=== PATIENT | male | born 2000 | race African-American/Black ===

== ENCOUNTER 2023-05-05 14:57 | Emergency (ER) | payer OTHER ==
[~2023-05-05] VITALS: Ht 180.3 cm; Wt 80.0 kg
[2023-05-05 15:02] VITALS: BP 148/66; PULSE 82; RESP 16; O2SAT 98
== END 2023-05-05 15:14 ==
LOC: ER 14:57
DX: S81.011A Laceration without foreign body, right knee, initial encounter (principal); X08.8XXA Exposure to other specified smoke, fire and flames, initial encounter; Y93.89 Activity, other specified; Y92.89 Other specified places as the place of occurrence of the external cause; Y99.8 Other external cause status
CPT/HCPCS: 12001; 99283